=== PATIENT | male | born 1950 | race Caucasian/White ===

== ENCOUNTER 2016-07-08 14:24 | Outpatient (RCR) | payer MEDICARE, OTHER | END 2016-10-06 | disposition home or self-care (01) | LOC: PT | DX: M75.101 Unspecified rotator cuff tear or rupture of right shoulder, not specified as traumatic (principal) ==

== ENCOUNTER 2016-10-23 10:00 | Outpatient (RCR) | payer MEDICARE, OTHER | END 2016-11-12 13:41 | disposition home or self-care (01) | LOC: PT 10:00 | DX: Z47.89 Encounter for other orthopedic aftercare (principal); M75.101 Unspecified rotator cuff tear or rupture of right shoulder, not specified as traumatic ==

== ENCOUNTER 2017-09-24 13:30 | Outpatient (RCR) | payer MEDICARE, OTHER | END 2017-10-21 | disposition home or self-care (01) | LOC: PT | DX: M54.5 Low back pain (principal) | CPT/HCPCS: G8978-GP; G8979-GP ==

== ENCOUNTER → 2020-06-13 | Outpatient (CLI) | payer MEDICARE ==
[2020-06-13 11:59] LABS: POTASSIUM 5.1 mmol/L (3.5-5.1); SODIUM 127 mmol/L (136-145)
[2020-06-13 12:00] LABS: CALCIUM 9.5 mg/dL (8.3-10.5)
[2020-06-13 12:01] LABS: GLUCOSE 93 mg/dL (75-110)
[2020-06-13 12:02] LABS: CARBON DIOXIDE 23 mmol/L (23-31)
[2020-06-13 12:14] LABS: TROPONIN-I < 0.03 ng/mL (<0.030)
== END ==
LOC: LAB 11:24
PROVIDERS: Family Medicine
DX: R06.02 Shortness of breath (principal)

== ENCOUNTER → 2021-02-09 | Outpatient (CLI) | payer MEDICARE ==
[2021-02-09 14:06] LABS: PROTHROMBIN TIME 20.3 SECONDS (9.0-12.0)
== END ==
LOC: LAB 13:43
PROVIDERS: Family Medicine
DX: I48.3 Typical atrial flutter (principal); Z79.01 Long term (current) use of anticoagulants; Z95.2 Presence of prosthetic heart valve

== ENCOUNTER → 2023-02-08 | Outpatient (CLI) | payer MEDICARE ==
[2023-02-08 13:16] LABS: POTASSIUM 3.9 mmol/L (3.5-5.1)
== END ==
LOC: LAB 12:51
PROVIDERS: Student in an Organized Health Care Education/Training Program
DX: N17.9 Acute kidney failure, unspecified (principal); Z79.01 Long term (current) use of anticoagulants